=== PATIENT | female | born 1990 | race American Indian/Alaskan Native ===

== ENCOUNTER 2016-08-27 20:27 | Emergency (ER) | payer SELFPAY ==
[2016-08-27 21:57] LABS: Basophils % (Auto) 0.7 % (0.0-1.8); Eosinophils % (Auto) 0.8 % (0.0-4.3); Hematocrit 26.1 % (30.3-42.9); Hemoglobin 8.9 gm/dl (10.1-14.3); Mean Corpuscular HGB Conc 34 % (30-34); Mean Corpuscular Hemoglobin 30 pg (28-32); Mean Corpuscular Volume 88 fl (79-97); Platelet Count 243 K/mm3 (140-440); Red Blood Count 2.98 M/mm3 (3.65-5.03); Red Cell Distribution Width 16.7 % (13.2-15.2)
[2016-08-28 06:31] LABS: Bilirubin,Urine NEG (Negative); Blood,Urine LG (Negative); Ketones,Urine NEG (Negative); Leukocyte Esterase,Urine TR (Negative); Mucus,Urine 2+ /HPF; Nitrite,Urine NEG (Negative); Urobilinogen,Urine < 2.0 mg/dL (<2.0)
[2016-08-28 06:44] LABS: Protein,Urine >500 mg/dL (Negative); RBC,Urine > 182.0 /HPF (0.0-6.0)
--- NOTE | 2016-08-28 06:44 | Emergency Department Report ---
ED Female HPI - General Chief complaint: Vaginal Bleeding Stated complaint: PELVIC PAIN Time Seen by Provider: 08/28/16 06:28 Source: patient Mode of arrival: Ambulatory Limitations: No Limitations - History of Present Illness Initial comments: 26-year-old female presents to the emergency department complaining of vaginal bleeding. Patient states that she took "the pill" on 08/14/2016. Since that time she states she has been having vaginal bleeding and intermittent lower abdominal cramping. She states over the past 2 days, however , the bleeding has become much more severe and the cramping more intense. Patient states she feels lightheaded, but has not passed out. Patient states she is using multiple pads per day. She states she cannot cough without bleeding. She reports passing large clots as well. There are no other complaints. Patient states she had similar symptoms approximately 1 year ago after taking the pill resulted in a D&C for retained products of conception. MD Complaint: vaginal bleeding -: Gradual, week(s) (2) Location: suprapubic Radiation: non-radiating Severity: severe Quality: cramping Consistency: intermittent Improves with: none Worsens with: none Are you Now?: No - Related Data Allergies Allergy/AdvReac Type Severity Reaction Status Date / Time No Known Allergies Allergy Verified 08/27/16 20:57 ED Review of Systems ROS: Stated complaint: PELVIC PAIN Other details as noted in HPI Comment: All other systems reviewed and negative Cardiovascular: syncope (lightheadedness, no loss of consciousness) Gastrointestinal: abdominal pain Genitourinary: as per HPI, abnormal menses ED Past Medical Hx - Past Medical History Previous Medical History?: No - Surgical History Past Surgical History?: Yes Hx Cholecystectomy: Yes Additional Surgical History: D&C / BREAST CYST REMOVAL - Family History Family history: no significant - Social History Smoking Status: Never Smoker Substance Use Type: None ED Physical Exam - General Limitations: No Limitations General appearance: alert, in no apparent distress - Head Head exam: Present: atraumatic, normocephalic - Eye Eye exam: Present: normal appearance, PERRL, EOMI - ENT ENT exam: Present: normal exam, normal orophraynx, mucous membranes moist - Neck Neck exam: Present: normal inspection, full ROM. Absent: tenderness - Respiratory Respiratory exam: Present: normal lung sounds bilaterally. Absent: respiratory distress - Cardiovascular Cardiovascular Exam: Present: regular rate, normal rhythm, normal heart sounds - GI/Abdominal GI/Abdominal exam: Present: soft, tenderness (mild suprapubic tenderness to palpation), normal bowel sounds. Absent: distended, guarding, rebound - Extremities Exam Extremities exam: Present: normal inspection, full ROM. Absent: tenderness - Back Exam Back exam: Present: normal inspection, full ROM. Absent: tenderness - Neurological Exam Neurological exam: Present: alert, oriented X3. Absent: motor sensory deficit - Skin Skin exam: Present: warm, dry, intact ED Course Vital Signs 08/27/16 08/28/16 08/28/16 20:59 03:34 06:05 Temperature 98.5 F 98.3 F Pulse Rate 79 80 82 Respiratory 18 20 18 Rate Blood Pressure 123/88 153/104 Blood Pressure 105/62 [Left] O2 Sat by Pulse 100 100 95 Oximetry ED Medical Decision Making - Lab Data Result diagrams: 08/27/16 21:28 - Radiology Data Radiology results: report reviewed Pelvic ultrasound shows complex, thickened endometrium measuring 24.5 mm. - Medical Decision Making Lab and imaging results reviewed and discussed with the patient. I have spoken with Dr. Chavis, IT ACCOUNT MANAGER. Patient is to be admitted for observation and possible D&C. - Differential Diagnosis spontaneous miscarriage, retained products of conception, ectopic Critical care attestation.: If time is entered above; I have spent that time in minutes in the direct care of this critically ill patient, excluding procedure time. ED Disposition Clinical Impression: Retained products of conception following Disposition: OP ADMITTED IP TO THIS HOSP Is pt being admited?: Yes Condition: Stable Referrals: PRIMARY CARE, [Primary Care Provider] - 3-5 Days Time of Disposition: 08:58
--- NOTE | 2016-08-28 07:30 | Ultrasound Report ---
Pelvic and transvaginal sonography: History: Bleeding after .. Findings: Uterus measures 9.3 x 5.1 x 5.3 cm. Endometrial thickness 24.5 mm. Irregular complex endometrium. No intrauterine gestation is noted. Right ovary 3.4 x 1.8 x 1.7 cm. No mass. Left ovary 2.8 x 2 x 2.3 cm. No mass. Impression: Thick irregular complex endometrium. No intra-uterine gestation. No adnexal mass.
--- NOTE | 2016-08-28 09:18 | Admit Criteria Form ---
Admission Criteria Documentation: OBSTETRIC AND GYNECOLOGIC DISEASE GRG Clinical Indications for Admission to Inpatient Care (Place 'X' for any and all applicable criteria): Hospital admission is needed for appropriate care of the patient because of ANY ONE of the following (1)(2)(3): [ ]I. Hemodynamic instability, as indicated by ALL of the following (1)(2)(3)( 4)(5): [ ]a) Vital signs or other findings not as expected for chronic patient condition or baseline [ ]b) Instability indicated by ANY ONE of the following: [ ]i) Hypotension [ ]ii) Symptomatic tachycardia unresponsive to treatment (eg, analgesia, fluids, sedation as indicated) [ ]iii) Inadequate perfusion indicated by ANY ONE of the following: [ ]A. Lactic acidosis (greater than 2 mmol/ L) [ ]B. New abnormal capillary refill ( greater than 3 seconds) [ ]C. Reduced urine output [ ]D. New altered mental status [ ]iv) Orthostatic vital sign changes unresponsive to treatment (eg, fluids) [ ]v) Multiple IV fluid boluses required to maintain adequate blood pressure or perfusion [ ]vi) IV inotropic or vasopressor medication required to maintain adequate blood pressure or perfusion [ ]II. Obstetric infection requiring hospitalization indicated by ANY ONE of the following(13)(14): [ ]a) Chorioamnionitis [ ]b) Endometritis (except mild endometritis) [ ]c) Pelvic abscess [ ]d) Peritonitis [ ]e) Septic pelvic thrombophlebitis [ ]III. Amniotic fluid or pulmonary embolism(4)(5)(6) [ ]IV. Suspected peritonitis or ectopic requiring monitoring beyond scope of 24 hours or observation care(7)(8) [ ]V. compromise requiring hospitalization indicated by ALL of the following(9)(10): [ ]a) compromise indicated by ANY ONE of the following(11): [ ]i) Abnormal heart rate monitoring [ ]ii) Abnormal contraction stress test [ ]iii) Abnormal biophysical profile [ ]iv) Abnormal Doppler flow in vessels (ie, Doppler velocimetry) (12) [ ]b) Persistence of compromise indicators during evaluation and observation monitoring [ ]. Ovarian hyperstimulation syndrome requiring hospitalization[A] indicated by ALL of the following(15): [ ]a) Recent ovarian stimulation with gonadotropins, or evidence on ultrasound of spontaneous emergence of large number of ovarian follicles [ ]b) Evidence of severe ovarian hyperstimulation syndrome indicated by ANY ONE of the following: [ ]i) Abdominal pain unresponsive to oral therapy [ ]ii) Acute respiratory distress syndrome [ ]iii) Electrolyte imbalance ( eg, hyponatremia, hyperkalemia) [ ]iv) Elevated liver enzymes [ ]v) Evidence of thromboembolism [ ]vi) Hemoconcentration (hematocrit greater than 45 % (0.45)) [ ]vii) Inability to maintain oral intake adequate to prevent hemoconcentration [ ]viii) Marked hypotension from baseline (eg, SBP 20 mmHg below patients usual pressure) [ ]ix) Oliguria or anuria [ ]x) Ovarian torsion [ ]xi) Pleural or pericardial effusion on x-ray or echocardiogram [ ]xii) Rapid increase in serum creatinine to greater than 1.2 mg/dL (106 micromoles/L) or creatinine clearance less than 50 mL/min/1.73m2 (0.84 mL/ sec/1.73m2) [ ]xiii) Ruptured ovarian cyst with hemorrhage [ ]xiv) Severe abdominal pain or peritoneal signs [ ]xv) Tense ascites that cannot be managed with paracentesis in outpatient setting [ ]VII.Pelvic infection requiring hospitalization indicated by ANY ONE of the following (16): [ ]a) Outpatient treatment has failed or is not appropriate (eg, inpatient monitoring required) [ ]b) Pelvic abscess [ ]c) Surgical emergency cannot be excluded (eg, rigid abdomen) [ ]d) Vomiting precluding outpatient and observation care management VIII. loss complications requiring inpatient medical treatment indicated by ANY ONE of the following (4)(7)(9): [ ]a) Fever [ ]b) Peritonitis [ ]c) Sepsis [ ]d) Severe abdominal pain [ ]IX. or patient requiring monitoring for severe heart failure, pulmonary disease, or other comorbid condition (eg, peripartum cardiomyopathy) (4)(17) [ ]X. patient with rupture of membranes requiring hospitalization indicated by ANY ONE of the following: [ ]a) Chorioamnionitis, cloudy amniotic fluid, or other evidence of infection [ ]b) compromise or other need for monitoring (11) [ ]c) Gestation longer than 23 weeks and ANY ONE of the following: [ ]i) Abnormal (noncephalic) presentation [ ]ii) Inadequate home environment (eg, home too far from hospital, unable to rapidly return to hospital) [ ]d) Temperature greater than 100.4 degrees F (38 degrees C)( oral) [ ]e) Threatened labor requiring monitoring beyond scope (eg, over 24 hours) of observation Care [ ] XI. complications, including severe lacerations, infections, or retained placenta (19) [ ] XII.Uterine bleeding with high-risk features indicated by ANY ONE of the following (4): [ ]a) Active major hemorrhage (eg, hemorrhage) [ ]b) Coagulopathy with active bleeding [ ]c) Gestational trophoblastic disease (eg, molar ) (20 ) [ ]d) (longer than 23 weeks) and ANY ONE of the following: [ ]i) Pain [ ]ii) Placental abruption, known or suspected [ ]iii) Placenta accrete, known or suspected(21) [ ]iv) Placenta previa, known or suspected [ ]v) Vasa previa [ ]e) Severe anemia [ X]XIII. Obstetric or Gynecologic Disease, condition or symptom for which ANY ONE of the following: [X ]a) Emergency and observation care have failed or are not considered appropriate ( Also use General Criteria: Observation Care Criteria as appropriate) [ ]b) Presence of a General Admission Criteria or Pediatric General Admission Criteria The original [facility] [employer] content created by [facility] has been revised. The portions of the content which have been revised are identified through the use of italic text or in bold, and [facility] has neither reviewed nor approved the modified material.All other unmodified content is copyright [facility]. Please see references footnoted in the original [facility] edition 2016 Admission Criteria Met: Yes
[2016-08-28 09:26] LABS: Hematocrit 22.5 % (30.3-42.9); Hemoglobin 7.5 gm/dl (10.1-14.3)
[2016-08-28] MEDS ORDERED: NACL 0.9% 1000 ML 1,000 ML IV ONE (09:38)
[2016-08-28] MEDS ORDERED: NACL 0.9% 500 ML 500 ML IV ONE (12:30)
[2016-08-28] MEDS ORDERED: METHERGINE IM ONE (12:30)
--- NOTE | 2016-08-28 13:29 | Consultation ---
History of Present Illness Consult date: 08/28/16 Reason for consult: early problem History of present illness: This is a 26year old who received misoprostol for EAB in [place] on . She started bleeding heavy yesterday and presents for evaluation. 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[employer] RELATIONS History: herpes - Obstetrical History : 4 Para: 1 Induced : 2 Number of Living Children: 1 Medications and Allergies Allergies Allergy/AdvReac Type Severity Reaction Status Date / Time No Known Allergies Allergy Verified 08/27/16 20:57 Home Medications Medication Instructions Recorded Confirmed Last Taken Type No Known Home Medications [No 08/28/16 08/28/16 Unknown History Reported Home Medications] Review of Systems All systems: negative Genitourinary: vaginal bleeding - Vital Signs Vital signs: Vital Signs Temp Pulse Resp BP Pulse Ox 98.5 F 79 18 123/88 100 08/27/16 20:59 08/27/16 20:59 08/27/16 20:59 08/27/16 20:59 08/27/16 20:59 Temp Pulse Resp BP Pulse Ox 98.3 F 63 16 117/78 100 08/28/16 03:34 08/28/16 09:58 08/28/16 09:58 08/28/16 09:58 08/28/16 09:58 - Physical Exam Breasts: Positive: deferred Genitourinary (Female): Positive: normal external genitalia, normal perenium Vulva: both: normal (A large clot with products of conception was on the introitus. ) Vagina: Positive: normal moisture, other (No active bleeding) Cervix: Negative: lesion, cyst noted, ulceration Results Result Diagrams: 08/28/16 09:10 Abnormal lab results 08/27/16 08/27/16 08/27/16 Range/Units 21:28 21:28 21:29 RBC 2.98 L (3.65-5.03) M/mm3 Hgb 8.9 L (10.1-14.3) gm/dl Hct 26.1 L (30.3-42.9) % RDW 16.7 H (13.2-15.2) % Walsh % (Auto) 8.3 H (0.0-7.3) % HCG, Quant 1862 H (0-4) mIU/mL Ur Specific [place] (1.003-1.030) Urine WBC (Auto) (0.0-6.0) /HPF Crossmatch See Detail 08/28/16 08/28/16 08/28/16 Range/Units 05:59 09:10 09:10 RBC (3.65-5.03) M/mm3 Hgb 7.5 L (10.1-14.3) gm/dl Hct 22.5 L (30.3-42.9) % RDW (13.2-15.2) % Walsh % (Auto) (0.0-7.3) % HCG, Quant 1120 H (0-4) mIU/mL Ur Specific [place] 1.034 H (1.003-1.030) Urine WBC (Auto) 54.0 H (0.0-6.0) /HPF Crossmatch All other labs normal. Ultrasound: report reviewed, image reviewed Assessment and Plan - Patient Problems (1) Anemia Current Visit: Yes Status: Acute Qualifiers: Anemia type: A Iron deficiency anemia type: I Vitamin B12 deficiency anemia type: V Folate deficiency anemia type: F Bone marrow failure anemia type: B Hemolytic anemia type: H Other causes of anemia: acute posthemorrhagic Qualified Code(s): D62 - Acute posthemorrhagic anemia (2) Retained products of conception following Current Visit: Yes Status: Acute Plan to address problem: Tissue and clot passed spontaneously, no active bleedin Will give 1unit PRBC and Methergine IM Will allow home with Methergine and Motrin
--- NOTE | 2016-08-28 13:45 | Discharge Summary ---
Providers - Providers Date of discharge: 08/28/16 Primary care physician: LESLIE EASON MD Hospitalization Condition: Stable Disposition: OP ADMITTED IP TO THIS HOSP - Discharge Diagnoses (1) Anemia Status: Acute Qualifiers: Anemia type: A Iron deficiency anemia type: I Vitamin B12 deficiency anemia type: V Folate deficiency anemia type: F Bone marrow failure anemia type: B Hemolytic anemia type: H Other causes of anemia: acute posthemorrhagic Qualified Code(s): D62 - Acute posthemorrhagic anemia (2) Retained products of conception following Status: Acute Core Measure Documentation - Palliative Care Palliative Care/ Comfort Measures: Not Applicable - Core Measures Any of the following diagnoses?: none Exam - Constitutional Vitals: Temp Pulse Resp BP Pulse Ox 98.3 F 63 16 117/78 100 08/28/16 03:34 08/28/16 09:58 08/28/16 09:58 08/28/16 09:58 08/28/16 09:58 Plan Activity: other (no sex) Weight Bearing Status: Weight Bear as Tolerated Diet: regular Special Instructions: no heavy lifting Additional Instructions: Prescriptions were sent to [facility] [address] Follow up with: LESLIE EASON MD [Primary Care Provider] - 3-5 Days FARIBA GILBERT MD [Staff Physician] - (September 01, [address] [place] [address])
[2016-08-28] MEDS ORDERED: TYLENOL ONE (14:11)
[2016-08-28] MEDS ORDERED: ZOFRAN ONE (14:11)
[2016-08-28] MEDS ORDERED: ZOFRAN IV ONE (14:25)
[2016-08-28] MEDS ORDERED: TYLENOL PO ONE (14:45)
[2016-08-28 16:36] VITALS: BP 108/65
== END 2016-08-28 16:58 | disposition admitted as inpatient to this hospital (09) ==
LOC: ED 20:27
DX: N93.8 Other specified abnormal uterine and vaginal bleeding (principal); Z90.49 Acquired absence of other specified parts of digestive tract
CPT/HCPCS: 36415; 76801; 76817; 81001; 84702; 85014; 85018; 85025; 86850; 86900; 86901; 86920; 88305; 96361; 96372; 96374; 99285; J2210; J2405; J7030; J7040; P9016